=== PATIENT | male | born 1950 | race Caucasian/White ===

== ENCOUNTER 2021-05-19 14:34 | Emergency (ER) | payer MEDICARE, MEDICAID, SELFPAY ==
[2021-05-19 14:35] VITALS: BP 168/77; PULSE 64; RESP 16; TEMP 36.7; O2SAT 98; BMI 25.1
--- NOTE | 2021-05-19 15:34 | HMH.EDUTC ---
[facility] [place] Impression: Left hand paresthesia, Abscess of left arm Left wrist injury Qualifiers: Encounter type: initial encounter Qualified Code(s): S69.92XA - Unspecified injury of left wrist, hand and finger(s), initial encounter Injury of left hand Qualifiers: Encounter type: initial encounter Qualified Code(s): S69.92XA - Unspecified injury of left wrist, hand and finger(s), initial encounter Disposition: Home, Self-Care Condition on Discharge: Good Instructions: DI for Hand Injury, DI for Hand Pain Additional Instructions: Rest the extremity, Elevate the extremity as tolerated while you are resting. Take the prednisone that we sent in to your pharmacy. This medication should reduce the swelling around the nerves in your hand and wrist and get it better. Follow up with Dr. Patino (orthopedics). Sometimes there can be fractures that don't show up well on the first set of x-rays. So, you should follow up if you continue to have symptoms. I put in a referral but you need to call his office and schedule an appointment. Follow up with your regular doctor. GO TO THE ER FOR ANY WORSENING SYMPTOMS Prescriptions: cephALEXin [cephALEXin 500mg capsule] 500 mg PO Q6H 10 Days #40 cap Transmission Status: Received by [facility] predniSONE [Prednisone 20mg Tab] 20 mg PO BID 4 Days #8 tab Transmission [facility]: [facility] Referrals: Provider,MD Kareem [Primary Care Provider] - Riley Patino MD [Staff Physician] - Time of Disposition: 16:22 Medical Decision Making - Medical Records Medical records reviewed: No: I reviewed the patient's medical records. - Willie Inquiry Pt receiving controlled substance: No Vital Signs: 05/19/21 14:35 05/19/21 16:56 Temperature 98.1 F 98.1 F Temperature Source Oral Oral Pulse Rate 60 Pulse Rate [Right] 64 Respiratory Rate 16 16 Blood Pressure 164/74 H Blood Pressure [Right Arm] 168/77 H Blood Pressure Mean [Right Arm] 107 Blood Pressure Source Automatic Cuff Blood Pressure Source [Right Arm] Automatic Cuff Blood Pressure Position Sitting Blood Pressure Position [Right Arm] Sitting 02 Sat by Pulse Oximetry 98 Oxygen Delivery Method Room Air Room Air - Radiology Data #1 Image(s): Wrist Image Reviewed: Yes I reviewed the patient's radiology image, Yes I have reviewed radiologist's interpretation Preliminary Findings: Normal/NAD, No Fracture Seen PROCEDURE: XR WRIST LT MIN 3V CLINICAL INDICATION: left forearm, wrist and hand injury and pain COMPARISON: No exams were available for comparison FINDINGS: No fracture or dislocation. No lytic or blastic change. There is normal mineralization. The joint spaces are well-preserved. No significant degenerative/arthritic changes. No erosive changes evident. Other findings:None. IMPRESSION: No acute findings. Dictated by: Charles Gonzalez MD 05/19/2021 16:01 Charles Gonzalez MD in [place] 05/19/2021 16:01 #2 Image(s): Hand Image Reviewed: Yes I reviewed the patient's radiology image, Yes I have reviewed radiologist's interpretation Preliminary Findings: Normal/NAD, No Fracture Seen PROCEDURE: XR HAND LT MIN 3V CLINICAL INDICATION: left forearm, wrist and hand injury and pain COMPARISON: No exams were available for comparison FINDINGS: No fracture or dislocation. No lytic or blastic change. There is normal mineralization. The joint spaces are well-preserved. No significant degenerative/arthritic changes. No erosive changes evident. Other findings:None. IMPRESSION: No acute findings. Dictated by: Charles Gonzalez MD 05/19/2021 16:02 Charles Gonzalez MD in [facility] 05/19/2021 16:02 #3 Image(s): Forearm Image Reviewed: Yes I reviewed the patient's radiology image, Yes I have reviewed radiologist's interpretation Preliminary Findings: Normal/NAD, No Fracture Seen PROCEDURE: XR FOREARM LT 2V CL
[2021-05-19 16:56] VITALS: BP 164/74; PULSE 60; RESP 16; TEMP 36.7; O2SAT 98
== END 2021-05-19 16:57 | disposition home or self-care (01) ==
PROVIDERS: Emergency Provider Nurse Practitioner Family
DX: S69.92XA Unspecified injury of left wrist, hand and finger(s), initial encounter (principal); L02.414 Cutaneous abscess of left upper limb; W22.8XXA Striking against or struck by other objects, initial encounter; Y92.019 Unspecified place in single-family (private) house as the place of occurrence of the external cause
CPT/HCPCS: 29125; G0463; 73090; 73110; 73130; 99202

== ENCOUNTER 2021-11-13 15:35 | Emergency (ER) | payer MEDICARE, MEDICAID, SELFPAY ==
[2021-11-13 15:38] VITALS: BP 105/87; PULSE 67; RESP 18; TEMP 36.9; O2SAT 97; BMI 25.1
--- NOTE | 2021-11-13 16:20 | PC.NURSE ---
ED MD at
--- NOTE | 2021-11-13 16:30 | CT_ITS ---
PROCEDURE INFORMATION: Exam: CT Lumbar Spine Without Contrast Exam date and time: 11/13/2021 4:32 PM Age: 71 years old Clinical indication: Low back pain TECHNIQUE: Imaging protocol: Computed tomography images of the lumbar spine without contrast. Radiation optimization: All CT scans at this facility use at least one of these dose optimization techniques: automated exposure control; mA and/or kV adjustment per patient size (includes targeted exams where dose is matched to clinical indication); or iterative reconstruction. COMPARISON: No relevant prior studies available. FINDINGS: Vertebrae: Normal anatomic alignment. Vertebral body heights are well preserved. Multilevel anterior osteophytes are appreciated. There is no evidence of acutely displaced fractures. Chronic fusion to the intervertebral disc space of L5-S1. There is diffuse and severe facet joint hypertrophy. L1-L2: Significantly decreased intervertebral disc space at L1-L2. Minimal posterior osteophyte at L1-L2, not causing significant central canal stenosis. There is lateral osteophytosis at L1-L2, causing moderate to severe bilateral neural foraminal stenosis. L2-L3: Decreased intervertebral disc space at L2-L3. Small posterior osteophyte at L2-L3, not causing significant central canal stenosis. Mild lateral osteophytosis at L2-L3, causing mild bilateral neural foraminal stenosis. L3-L4: Minimal decrease in intervertebral disc space at L3-L4. No central canal stenosis at L3-L4. No bilateral neural foraminal stenosis at L3-L4. L4-L5: Decreased intervertebral disc space at L4-L5. No significant central canal stenosis at L4-L5. There is a pronounced left lateral osteophyte at L4-L5, causing moderate to severe left neural foraminal stenosis. No significant right neural foraminal stenosis at L4-L5. L5-S1: No significant central canal stenosis or neural foraminal stenosis at L5-S1. Other bones/joints: There is no evidence of joint dislocation. No aggressive osseous lesions. Lungs: 1.7 cm left adrenal nodule with Hounsfield units of -20. This is most in favor with an adenoma. Soft tissues: Partially visualized right renal cysts. No other concerning findings in the visualized abdominal structures. No significant prevertebral or paravertebral soft tissue swelling. IMPRESSION: 1. Moderate multilevel degenerative and disc disease, as detailed above. 2. No acutely displaced fracture or aggressive osseous lesion. 3. Incidental findings as above. COMMENTS: Consistent with the [employer]'s Incidental Findings Committee white paper (J Am Manuel Radiol 2017): For any incidental adrenal lesion greater than 1 cm but less than 4 cm classified in this report as benign, likely benign, or containing fat (including classification as an adenoma or myelolipoma), no follow-up imaging is recommended per consensus recommendations based on imaging criteria. Further lab evaluation could be pursued if warranted based on clinical findings.
--- NOTE | 2021-11-13 16:37 | PC.NURSE ---
patient to radiology with process tech by wheelchair
--- NOTE | 2021-11-13 16:47 | PC.NURSE ---
back from radiology by wheelchair with physics technical officer
--- NOTE | 2021-11-13 17:16 | HMH.EDGENADL ---
ED Disposition Clinical Impression: Lumbar degenerative disc disease Disposition: Home, Self-Care Condition on Discharge: Good Instructions: DI for Degenerative Disc Disease Prescriptions: methocarbamoL [Methocarbamol 500mg Tablet] 1,000 mg PO TID 10 Days #60 tab Transmission Status: Pending to [facility] Acetaminophen [Tylenol 500mg tablet] 500 mg PO Q6 #24 tab Transmission Status: Pending to [facility] Referrals: Provider,Referral, [Primary Care Provider] - Jamaal Mejia [Referring] - - Critical Care Critical Care Time: No Attestation: On 11/13/21, the high probability of a clinically significant, sudden or life threatening deterioration of the following system(s) required my full and direct attention, intervention and personal management. The time I documented below is in addition to time spent performing reported procedures but includes the following listed in this critical care notation. Medical Decision Making - Medical Records Medical records reviewed: Yes: I reviewed the patient's medical records. - Willie Inquiry Pt receiving controlled substance: Yes Willie was queried for this patient: No Reason not queried -: Willie login issues Risks and benefits of using a controlled substance: were discussed with pt by me Vital Signs: 11/13/21 15:38 Temperature 98.4 F Temperature Source Oral Pulse Rate [Left Radial] 67 Respiratory Rate 18 Blood Pressure [Right Arm] 105/87 L Blood Pressure Mean [Right Arm] 93 Blood Pressure Source [Right Arm] Automatic Cuff Blood Pressure Position [Right Arm] Sitting 02 Sat by Pulse Oximetry 97 Oxygen Delivery Method Room Air Orders (Tests/Meds): ED MEDICATIONS Discontinued Medications Generic Name Dose Route Start Last Admin Trade Name Valentina PRN Reason Stop Dose Admin Hydrocodone Bitart/Acetaminophen 1 tab 11/13/21 16:30 11/13/21 16:42 Apap/Hydrocodone 325mg/7.5mg Tab PO 11/13/21 16:31 1 tab ONCE ONE Administration Ketorolac Tromethamine 30 mg 11/13/21 16:15 11/13/21 16:16 Ketorolac 30mg/Ml Vial IV 11/13/21 16:16 Not Given ONCE ONE Ketorolac Tromethamine 60 mg 11/13/21 16:16 11/13/21 16:42 Ketorolac 60mg/2ml Vial IM 11/13/21 16:17 60 mg ONCE ONE Administration Methylprednisolone Sodium Succinate 125 mg 11/13/21 16:15 11/13/21 16:16 Methylprednisolone Sod Succ 125mg Vial IV 11/13/21 16:16 Not Given ONCE ONE Methylprednisolone Sodium Succinate 125 mg 11/13/21 16:16 11/13/21 16:41 Methylprednisolone Sod Succ 125mg Vial IM 11/13/21 16:17 125 mg ONCE ONE Administration - Radiology Data #1 Image(s): L-Spine Image Reviewed: Yes I reviewed the patient's radiology results, Yes I reviewed the patient's radiology image, Yes I have reviewed radiologist's interpretation IMPRESSION: 1. Moderate multilevel degenerative and disc disease, as detailed above. 2. No acutely displaced fracture or aggressive osseous lesion. 3. Incidental findings as above. - Reevaluation(s) Time: 17:47 Reevaluation #1: On reevaluation, patient is feeling better. There is no evidence of spinal cord compression. No fracture. Patient can follow-up with PCP as well as spine surgery. Given strict return precautions. Verbalized understanding. Medical Decision Narrative: 71-year-old male presenting with lower back pain. Is no evidence spinal cord compression. Findings are consistent with sciatica. Work-up initiated. General Adult HPI - General Chief complaint: PAIN Stated complaint: Lower back pain;Pain down into left foot Time Seen by Provider: 11/13/21 15:45 Mode of Arrival: Ambulatory Limitations: No Limitations Description of Symptoms (Recalled from ER Triage Doc. by RN): c/o a pain in his left hip/back that runs down to his left toes, states he thinks it was his sciatic but then he got to wondering if he was having lock bowels. States that he usually goes once a week but here la
--- NOTE | 2021-11-13 17:54 | PC.NURSE ---
pt wanting to leave ama says he is tired of sitting in hard chair, pt placed in reclining chair and appears satisfied for now.
--- NOTE | 2021-11-13 17:56 | PC.NURSE ---
Dr Lafleur in room with pt
[2021-11-13 18:30] VITALS: BP 115/82; PULSE 72; RESP 19; TEMP 36.9; O2SAT 98
== END 2021-11-13 18:45 | disposition home or self-care (01) ==
PROVIDERS: Emergency Provider Emergency Medicine
DX: M51.36 Other intervertebral disc degeneration, lumbar region (principal); M25.552 Pain in left hip; Z79.52 Long term (current) use of systemic steroids
CPT/HCPCS: 72131; 96372; 96374; 96375; 99285